=== PATIENT | female | born 1990 | race Two or more races ===

== ENCOUNTER 2017-07-30 08:13 | Emergency (ER) | payer OTHER ==
[2017-07-30 08:37] VITALS: BMI 34.9
[2017-07-30] MEDS ORDERED: FAMOTIDINE 20 MG/50 ML IVPB 50 ML IVPB ONE ×2 (08:52→09:05)
[2017-07-30] MEDS ORDERED: ONDANSETRON 4 MG/2 ML VIAL IVPB ONE (08:52)
[2017-07-30] MEDS ORDERED: MAG HYDROX/AL HYDROX/SIMETH 30 ML UNIT-DOSE CUP PO ONE (08:53)
[2017-07-30] MEDS ORDERED: SODIUM CHLORIDE 1,000 ML IV STA (08:54)
--- NOTE | 2017-07-30 09:01 | PDOC ---
History of Present Illness - General Chief Complaint: Pain Stated Complaint: CONSTIPATION Time Seen by Provider: 07/30/17 08:43 History Source: Patient Exam Limitations: No Limitations - History of Present Illness Initial Comments: 07/30/17 08:55 Patient is a 27F with history of cholecystectomy and in 2015 is here today complaining of upper abdominal pain upon awakening this morning. She states that she did not have a bowel movement for two days, so she took six laxatives last night. She says that she got nervous and started feeling pain in her upper abdomen radiating to her back with associated nausea and chills. She denies fevers, vomiting, and pain with urination. LMP was about a month ago. 07/30/17 09:41 She took 6 doses of bisacodyl. Past History - Past Medical History Allergies/Adverse Reactions: Allergies Allergy/AdvReac Type Severity Reaction Status Date / Time No Known Allergies Allergy Verified 07/30/17 08:26 - Surgical History Cholecystectomy: Yes - Reproductive History (#): 1 Para: 0 Cervical CA: No Dysfunctional Uterine Bleeding: No Ectopic : No Endometrial CA: No Polycystic Ovaries: No Therapeutic (s) & number: No Tubal Ligation: No - Suicide/Smoking/Psychosocial Hx Smoking History: Never smoked Review of Systems - Review of Systems Comments:: 07/30/17 09:03 GENERAL/CONSTITUTIONAL: No fever or chills. No weakness. HEAD, EYES, EARS, NOSE AND THROAT: No change in vision. No ear pain or discharge. No sore throat. CARDIOVASCULAR: No chest pain. Positive for shortness of breath. RESPIRATORY: No cough, wheezing, or hemoptysis. GASTROINTESTINAL: No nausea, vomiting, diarrhea or constipation. GENITOURINARY: No dysuria, frequency, or change in urination. MUSCULOSKELETAL: No joint or muscle swelling or pain. No neck or back pain. SKIN: No rash NEUROLOGIC: No headache, vertigo, loss of consciousness, or change in strength/ sensation. ENDOCRINE: No increased thirst. No abnormal weight change HEMATOLOGIC/LYMPHATIC: No anemia, easy bleeding, or history of blood clots. ALLERGIC/IMMUNOLOGIC: No hives or skin allergy. *Physical Exam - Vital Signs Last Vital Signs Temp Pulse Resp BP Pulse Ox 97.7 F 84 16 104/69 100 07/30/17 08:29 07/30/17 08:29 07/30/17 08:29 07/30/17 08:29 07/30/17 08:29 - Physical Exam Comments: 07/30/17 09:08 GENERAL: Awake, alert, and fully oriented, in no acute distress HEAD: No signs of trauma, normocephalic, atraumatic EYES: PERRLA, EOMI, sclera anicteric, conjunctiva clear ENT: Auricles normal inspection, hearing grossly normal, nares patent, oropharynx clear without exudates. Moist mucosa NECK: Normal ROM, supple, no lymphadenopathy, JVD, or masses LUNGS: No distress, speaks full sentences, clear to auscultation bilaterally HEART: Regular rate and rhythm, normal S1 and S2, no murmurs, rubs or gallops, peripheral pulses normal and equal bilaterally. ABDOMEN: Tender in epigastric region, normoactive bowel sounds. No guarding, no rebound. No masses EXTREMITIES: Normal inspection, Normal range of motion, no edema. No clubbing or cyanosis. NEUROLOGICAL: Cranial nerves II through XII grossly intact. Normal speech, no focal sensorimotor deficits SKIN: Warm, Dry, normal turgor, no rashes or lesions noted. ED Treatment Course - LABORATORY CBC & Chemistry Diagram: 07/30/17 09:15 07/30/17 09:15 Medical Decision Making - Medical Decision Making 07/30/17 09:09 Patient is a 27F with history of cholecystectomy and in 2015 here with abdominal pain after ingesting 6 laxatives. Vital signs stable and normal. Believe that pain is most likely due to laxative ingestion, but will do abdominal labs to rule out other causes of abdominal pain. Will treat with maalox, zofran, fluids and pepcid. If labs are normal, will discharge without imaging. 07/30/17 10:08 Laboratory Tests 07/30/17 07/30/17 09:15 09:20 WBC 10.2 H Urine WBC 17 CBC shows small white count. UA positive for 17 WBCs. CMP reassuring. Upreg negative. Asymptomatic, does not require antibiotics. *DC/Admit/Observation/Transfer Diagnosis at time of Disposition: Abdominal pain - Discharge Dispostion Disposition: HOME Condition at time of disposition: Good Admit: No - Referrals Referrals: Gil Morillo [Primary Care Provider] - - Patient Instructions Printed Discharge Instructions: DI for Abdominal Pain-Adult Additional Instructions: Please follow up with your primary care doctor. Please come back to the ED if the pain worsens. Please come back if you start vomiting or you develop a fever.
[2017-07-30] MEDS ORDERED: ONDANSETRON 4 MG/2 ML VIAL ONE (09:05)
[2017-07-30] MEDS ORDERED: MAG HYDROX/AL HYDROX/SIMETH 30 ML UNIT-DOSE CUP ONE ×2 (09:05→11:33)
[2017-07-30 09:23] LABS: BASOPHIL 0.5 % (0-2.0); EOSINOPHIL 0.4 % (0-4.5); MCH 29.1 pg (25.7-33.7); MCHC 33.5 g/dl (32.0-36.0); MEAN CELL VOLUME 86.9 fl (80-96); MEAN PLT VOLUME 8.6 fl (7.5-11.1); NEUTROPHILS 76.3 % (42.8-82.8); PLATELET COUNT 224 K/MM3 (134-434); RDW 14.1 % (11.6-15.6); WHITE BLOOD COUNT 10.2 K/mm3 (4.0-10.0)
[2017-07-30 09:44] LABS: URINE APPEARANCE CLOUDY; URINE BILIRUBIN NEGATIVE (NEGATIVE); URINE BLOOD NEGATIVE (NEGATIVE); URINE COLOR YELLOW; URINE GLUCOSE (UA) NEGATIVE (NEGATIVE); URINE KETONE NEGATIVE (NEGATIVE); URINE NITRITE NEGATIVE (NEGATIVE); URINE PROTEIN NEGATIVE (NEGATIVE); URINE UROBILINOGEN NEGATIVE mg/dL (0.2-1.0)
[2017-07-30 09:50] LABS: URINE LEUK ESTERASE 1+ (NEGATIVE)
[2017-07-30 09:52] LABS: URINE BACTERIA RARE /hpf (NONE SEEN); URINE MUCUS FEW; URINE RBC 1 /hpf (0-3); URINE WBC 17 /hpf (3-5)
[2017-07-30 09:54] LABS: ALBUMIN 3.4 g/dl (3.4-5.0); ANION GAP 5 (8-16); BILIRUBIN,TOTAL 0.9 mg/dL (0.2-1.0); CALCIUM 8.6 mg/dL (8.5-10.1); CO2 28 mmol/L (21-32); CREATININE 0.8 mg/dL (0.55-1.02); GLUCOSE,RANDOM 88 mg/dL (74-106); SGOT/AST 18 U/L (15-37); SGPT/ALT 22 U/L (12-78)
[2017-07-30 09:56] LABS: ALK PHOS 58 U/L (45-117); TOT PROT 7.2 g/dl (6.4-8.2)
[2017-07-30] MEDS ORDERED: CEPHALEXIN MONOHYDRATE 500 MG CAPSULE (UD) PO ONE (10:11)
[2017-07-30] MEDS ORDERED: MAG HYDROX/AL HYDROX/SIMETH 355 ML ORAL.SUSP PO ONE (11:17)
[2017-07-30 11:51] VITALS: BP 113/68; PULSE 80; TEMP 97.8
== END 2017-07-30 11:51 | disposition home or self-care (01) ==
LOC: JER 08:13
PROC: 3E0337Z Introduction of Electrolytic and Water Balance Substance into Peripheral Vein, Percutaneous Approach (ICD-10-PCS; principal; 2017-07-30)
PROC: 3E033GC Introduction of Other Therapeutic Substance into Peripheral Vein, Percutaneous Approach (ICD-10-PCS; 2017-07-30)
DX: R10.10 Upper abdominal pain, unspecified (principal)
CPT/HCPCS: 36415; 80053; 81003; 81015; 83690; 84703; 85025; 96361; 96365; 96375; 99283-25

== ENCOUNTER 2022-04-10 16:19 | Emergency (ER) | payer OTHER ==
[2022-04-10 17:41] VITALS: BMI 33.1
[2022-04-10] MEDS ORDERED: morphine CARPU-JECT 4 MG/1 ML DISP.SYRIN IVPUSH ONE (19:35)
[2022-04-10] MEDS ORDERED: ONDANSETRON 4 MG/2 ML VIAL IVPUSH ONE (19:35)
[2022-04-10] MEDS ORDERED: SODIUM CHLORIDE 1,000 ML IV STA (19:35)
[2022-04-10 19:45] VITALS: BP 114/77; PULSE 86; TEMP 97.9
[2022-04-10] MEDS ORDERED: morphine SULFATE 4 MG/ML VIAL ONE (19:45)
[2022-04-10] MEDS ORDERED: ONDANSETRON 4 MG/2 ML VIAL ONE (19:45)
[2022-04-10 21:06] LABS: BASO % 0.5 % (0-2.0); EOS % 1.1 % (0-4.5); HEMATOCRIT 40.7 % (32.4-45.2); HEMOGLOBIN 13.4 GM/dL (10.7-15.3); LYMPH % 40.2 % (8-40); MCH 28.7 pg (25.7-33.7); MCHC 32.9 g/dl (32.0-36.0); MEAN PLT VOLUME 8.6 fl (7.5-11.1); MONO % 14.3 % (3.8-10.2); NEUT % 43.9 % (42.8-82.8); PLATELET COUNT 224 10^3/uL (134-434); RBC 4.67 M/mm3 (3.60-5.2); RDW 13.9 % (11.6-15.6); WHITE BLOOD COUNT 4.3 K/mm3 (4.0-10.0)
[2022-04-10 21:22] LABS: CALCIUM 8.6 mg/dL (8.5-10.1)
[2022-04-10 21:23] LABS: ALBUMIN 3.2 g/dl (3.4-5.0); BLOOD UREA NITROGEN 10.4 mg/dL (7-18)
[2022-04-10 21:26] LABS: CREATININE 0.8 mg/dL (0.55-1.3)
[2022-04-10 21:27] LABS: TOT PROT 6.9 g/dl (6.4-8.2)
[2022-04-10 21:33] LABS: EPI CELLS >36 /uL (0-25.1); HYALINE CASTS 5 /uL (0-3.1); URINE APPEARANCE CLOUDY; URINE BACTERIA 2356 /uL (0-1359); URINE BILIRUBIN NEGATIVE (NEGATIVE); URINE COLOR YELLOW; URINE GLUCOSE (UA) NEGATIVE (NEGATIVE); URINE KETONE TRACE (NEGATIVE); URINE LEUK ESTERASE 1+ (NEGATIVE); URINE NITRITE NEGATIVE (NEGATIVE); URINE PROTEIN NEGATIVE (NEGATIVE); URINE RBC 12 /uL (0-23.9); URINE WBC 149 /uL (0-25.8)
[2022-04-10] MEDS ORDERED: morphine CARPU-JECT 2 MG/1 ML DISP.SYRIN IVPUSH ONE (23:11)
== END 2022-04-11 00:26 | disposition home or self-care (01) ==
LOC: JER 16:19
PROC: 3E033GC Introduction of Other Therapeutic Substance into Peripheral Vein, Percutaneous Approach (ICD-10-PCS; principal; 2022-04-10)
DX: N30.90 Cystitis, unspecified without hematuria (principal)
CPT/HCPCS: 36415; 74176-TC; 80053; 81003; 83690; 84703; 85025; 87086; 99285-25